=== PATIENT | female | born 1985 | race Caucasian/White ===

== ENCOUNTER 2020-05-23 10:14 | Inpatient (IN) ==
[2020-05-23] MEDS ORDERED: Lactated Ringers 1000 ml BAG 1,000 ML IV ONE (10:57)
[2020-05-23] MEDS: Lactated Ringers 1000 ml BAG 1,000 ML IV SCH ×2 (11:38→17:25)
[2020-05-23 11:40] LABS: ABS Lymphocytes 1.5 10^3/ul (1.0-4.8); ABS Monocytes 0.4 10^3/ul (0-0.8); Eosinophil % 0.1 %; Hematocrit 38 % (35-47); Mean Corpuscular HGB Conc 35 g/dL (31-36); Mean Corpuscular Hemoglobin 30 pg (27-31); Mean Corpuscular Volume 87 fL (80-97); Mean Platelet Volume 10.4 fL (7.4-10.4); Nucleated Red Blood Cells % 0.1; Platelet Count 178 10^3/uL (150-450); Red Blood Count 4.36 10^6 /uL (3.70-4.87); Red Cell Distribution Width 13 % (10-15); White Blood Count 11.4 10^3/uL (3.5-10.8)
[2020-05-23 13:16] LABS: Urine Benzodiazepine Screen None Detected (None Detect); Urine Opiates Screen None Detected (None Detect)
[2020-05-23] MEDS ORDERED: Lactated Ringers 500 ml BAG 500 ML IV PRN (16:20)
[2020-05-23] MEDS ORDERED: OBEPIDURAL 250 ML EPIDURAL SCH (18:00)
[2020-05-23] MEDS ORDERED: Oxytocin in LR 20 UNITS/1,000 ML BAG IVPB ONE (19:16)
[2020-05-23] MEDS ORDERED: Dibucaine 1% OINT 28.35 GM TUBE ONE (21:15)
[2020-05-23] MEDS ORDERED: Witch Hazel PAD JAR ONE (21:15)
[2020-05-23] MEDS ORDERED: Witch Hazel PAD JAR TOPICAL PRN (21:23)
[2020-05-23] MEDS ORDERED: Glycerin ADULT 2.4 gm SUPP PR PRN (21:23)
[2020-05-23] MEDS ORDERED: Dibucaine 1% OINT 28.35 GM TUBE PR PRN (21:23)
[2020-05-23] MEDS ORDERED: Lactated Ringers 1000 ml BAG 1,000 ML IV SCH (22:00)
[2020-05-23] MEDS ORDERED: Oxytocin in LR 20 UNITS/1,000 ML BAG IVPB SCH (22:00)
[2020-05-24 07:28] LABS: ABS Basophils 0.1 10^3/ul (0-0.2); ABS Lymphocytes 1.7 10^3/ul (1.0-4.8); Eosinophil % 0.1 %; Hematocrit 29 % (35-47); Hemoglobin 10.2 g/dL (12.0-16.0); Lymphocyte % 11.4 %; Mean Corpuscular HGB Conc 35 g/dL (31-36); Mean Corpuscular Hemoglobin 30 pg (27-31); Mean Corpuscular Volume 87 fL (80-97); Mean Platelet Volume 8.6 fL (7.4-10.4); Platelet Count 154 10^3/uL (150-450); Red Blood Count 3.35 10^6 /uL (3.70-4.87); Red Cell Distribution Width 13 % (10-15); White Blood Count 15.3 10^3/uL (3.5-10.8)
[2020-05-24] MEDS ORDERED: Phenylephrine 40 mcg/mL 10mL (400mcg) SYRINGE ONE (08:19)
[2020-05-25 07:47] VITALS: BP 96/58
== END 2020-05-25 16:32 | disposition home or self-care (01) | DRG 560 ==
LOC: MCHOBOUT 10:14 → MCHOB 10:25
PROVIDERS: ADMIT Midwife; ATTEND Midwife